=== PATIENT | female | born 1980 | race Caucasian/White ===

== ENCOUNTER 2018-08-22 20:22 | Emergency (ER) | payer SELFPAY ==
[2018-08-22] MEDS ORDERED: Fentanyl 100 MCG/2 ML VIAL ONE (21:08)
--- NOTE | 2018-08-22 21:58 | ULT ---
ULTRASOUND PELVIC ULTRASOUND TRANSVAGINAL DOPPLER DUPLEX: 08/22/18 at 9:16 p.m. HISTORY: 37-year-old female with severe pelvic pain. Rule out ovarian torsion. TECHNIQUE: Transabdominal transducer used to evaluate intrapelvic contents using the urinary bladder as an acous tic window. Endovaginal transducer used to visualize intrapelvic contents in greater detail. Color fl ow Doppler and Pulsed Doppler spectral waveform analysis of ovaries. FINDINGS: The uterus measures approximately 9 x 5 x 5.5 cm. Endometrial stripe is 1.4 cm (14 mm). Right ovary is approximately 3 x 2 x 1 cm. Left ovary is approximately 2.5 x 1.5 x 1 cm. No ovarian cyst is visualized. Symmetrical degree of blood flow is demonstrated in bilateral ovarian parenchyma. There is a small to moderate amount of free fluid in the right adnexa. There is also material of inte rmediate echogenicity and increased blood flow in the right adnexa around the right ovary. Some of th is represents bowel loops. Some of it could represent hyperemic, inflammatory tissue, although this i s certain. There is also a small amount of free fluid in the cul-de-sac. The patient was most tender over the right adnexa during scanning with the transvaginal transducer. IMPRESSION: 1. Bilateral ovaries are of normal size, and have symmetrical blood flow demonstrated by doppler . 2. Small to moderate amount of free fluid in the right adnexa and cul-de-sac. 3. Hyperemic tissue in the right adnexa. Some of this represents bowel loops. There is a possibi lity of pelvic inflammatory disease, although that is uncertain. Recommend clinical correlation. JENNY Rice POS: LANI
[2018-08-24 14:04] LABS: Chlamydia by PCR Not Detected (NotDetected); GC by PCR Not Detected (NotDetected)
== END 2018-08-22 22:55 | disposition home or self-care (01) ==
LOC: ERS 20:22
DX: R10.31 Right lower quadrant pain (principal); R10.32 Left lower quadrant pain; F31.9 Bipolar disorder, unspecified; F41.9 Anxiety disorder, unspecified; F17.210 Nicotine dependence, cigarettes, uncomplicated
CPT/HCPCS: 76856; 87480; 87491; 87510; 87591; 87660; 96361; 96374; J3010

== ENCOUNTER 2019-08-02 03:30 | Emergency (ER) | payer SELFPAY ==
[2019-08-02] MEDS ORDERED: Morphine 4 MG/ML VIAL ONE (03:54)
[2019-08-02] MEDS ORDERED: Ondansetron PF 4 MG/2 ML Vial ONE (03:54)
[2019-08-02 03:57] LABS: #Basophils 0.1 thou/uL (0.0-0.2); #Eosinphils 0.2 thou/uL (0.0-0.7); #Lymphocytes 2.8 thou/uL (1.20-3.40); #Monocytes 0.6 thou/uL (0.11-0.59); #Neutrophils 5.5 thou/uL (1.40-6.50); %Basophils 0.7 % (0.0-1.0); %Eosinophils 2.2 % (0.0-10.0); %Lymphocytes 30.5 % (21.0-51.0); %Monocytes 6.4 % (0.0-10.0); %Neutrophils 60.1 % (42.0-75.0); Hemoglobin 13.9 g/dL (12.0-16.0); Mean Corpuscular HGB CONC 33.5 g/dL (32.0-36.0); Mean Corpuscular Hemoglobin 30.6 pg (27.0-31.0); Mean Corpuscular Volume 91.4 fL (78.0-98.0); Mean Platelet Volume 8.4 fL (7.4-10.4); Platelet Count 232 thou/uL (130-400); Red Blood Cell (RBC) Count 4.55 mill/uL (4.20-5.40); White Blood Cell (WBC) Count 9.2 thou/uL (4.8-10.8)
[2019-08-02 04:13] LABS: Lactic Acid 0.8 mmol/L (0.5-2.2)
[2019-08-02 04:26] LABS: ALT (SGPT) 24 U/L (8-55); AST (SGOT) 17 U/L (5-34); Albumin 4.4 g/dL (3.5-5.0); Alkaline Phosphatase 72 U/L (40-110); Anion Gap 12 mmol/L (10-20); BUN (Urea Nitrogen) 12 mg/dL (7.0-18.7); Bilirubin, Total 0.2 mg/dL (0.2-1.2); Calc. Creatinine Clearance 0 mL/min (70-130); Calcium 9.7 mg/dL (7.8-10.44); Carbon Dioxide 28 mmol/L (22-29); Chloride 104 mmol/L (98-107); Estimated GFR-MDRD 81; Glucose 93 mg/dL (70-105); Lipase 20 U/L (8-78); Potassium 3.7 mmol/L (3.5-5.1); Protein, Total 7.4 g/dL (6.0-8.3); Sodium 140 mmol/L (136-145)
[2019-08-02 04:36] LABS: Pregnancy Test - Urine (BHCG) Negative (Negative); Pregu Control Background? CLEAR/WHITE (CLR/WHITE); Pregu Control Bar Appear? YES (CONTROL BAR); Specific Gravity 1.019 (1.002-1.036)
[2019-08-02 04:37] LABS: Bilirubin Negative (Negative); Blood, Urine Negative (Negative); Calcium Oxalate Crystals 3+ HPF (None Seen); Clarity Clear (Clear); Glucose, Urine (Dipstick) Normal (Negative); Leukocyte 25 Leu/uL (Negative); Nitrite Negative (Negative); Protein, Urine (Dipstick) Negative (Neg-Trace); RBC/HPF 0-3 HPF (0-3); Urobilinogen Normal mg/dL (Less than 2); WBC/HPF 0-3 HPF (0-3)
[2019-08-02 04:39] LABS: Bacteria/HPF 1+ HPF (None Seen)
--- NOTE | 2019-08-02 08:45 | CT ---
PRELIMINARY REPORT/[facility]/EMERGENCY AFTER HOURS PROCEDURE: PROCEDURE INFORMATION: Exam: CT Abdomen And Pelvis With Contrast Exam date and time: 08/02/2019 4:34 AM Clinical history: 38 years old, female; Abdominal pain; Patient HX: PT C/O sharp stabbing pain in lef t lower quadrant abd; Additional info: Acute onset llq abd pain 1 hour prior to arrival; Tubal ligati on - doubt ectopic; No avarian cysts - doubt torsion; B/m yesterday - doubt obstruction. Suspect dive rticulitis. No HX of kidney stone and pain is constant - doubt lithiasis TECHNIQUE: Imaging protocol: Computed tomography of the abdomen and pelvis with intravenous contrast. COMPARISON: No relevant prior studies available. FINDINGS: Lungs: The lung bases are clear. Liver: The liver appears somewhat enlarged, with right lobe length of about 22 cm. No definite/signif icant focal hepatic abnormality. Gallbladder and bile ducts: Prior cholecystectomy. Borderline/mild extra hepatic biliary tree prominence, with common duct measuring up to about 10-11 m m. Mild intrahepatic biliary prominence. No visible common duct stone by CT. Significance uncertain. Correlation with laboratory/bilirubin levels may be helpful to determine if t here is any significant biliary obstruction. Pancreas: Unremarkable. Spleen: Unremarkable. Adrenals: Unremarkable. Kidneys and ureters: No significant hydronephrosis/hydroureter involving either kidney. No visible ureteral calculus. No perinephric fluid. Normal appearance of the kidneys on CT does not entirely exclude the diagnosis of acute pyelonephriti s. Please correlate with clinical and laboratory evaluation. Stomach and bowel: Several small bowel loops in the left abdomen are fluid filled and borderline prom inent in size. The overall appearance is not strongly suggestive of significant small bowel obstructi on at this time. This appearance could be secondary to some form of gastroenteritis. Please correlate clinically. If there is clinical suspicion for small bowel obstruction, follow-up may be helpful to exclude progr ession. There are no CT findings to strongly suggest diverticulitis. Appendix: The appendix is visualized and appears normal. Intraperitoneal space: No free intraperitoneal air, or ascites. Vasculature: No evidence for abdominal aortic aneurysm. Lymph nodes: No retroperitoneal adenopathy. Bladder: Possibly some mild diffuse urinary bladder wall thickening. While nonspecific, this could in dicate evidence for cystitis. Please correlate clinically. Reproductive: No definite abnormal ovarian/adnexal cyst or mass by CT. Bones/joints: Moderate disc space narrowing at L5-S1. Soft tissues: No significant acute finding. IMPRESSION: 1. Several small bowel loops in the left abdomen are fluid filled and borderline prominent in size. T his appearance could be secondary to some form of gastroenteritis. See above discussion. 2. No diverticulitis. 3. No free intraperitoneal air. 4. Possible mild urinary bladder wall thickening, see above. 5. No significant hydronephrosis or visible ureteral calculus. 6. No perinephric fluid. See above discussion. 7. Prior cholecystectomy. Borderline/mild biliary tree prominence, see above discussion. 8. Other findings discussed above. Thank you for allowing us to participate in the care of your patient. Dictated and Authenticated by: Ricky Rossi MD 08/02/2019 5:18 AM Central Time ([place] & [place]) FINAL REPORT EMERGENT AFTER HOURS CT OF THE ABDOMEN AND PELVIS WITH CONTRAST: FINDINGS/IMPRESSION: I agree with the findings and impression given in the preliminary report per [facility] physician. This i s basically a normal exam. The small bowel loops are likely normal. POS: CET
[2019-08-02] MEDS ORDERED: Iopamidol 370 76% 100 ML VIAL ONE (16:01)
== END 2019-08-02 05:40 | disposition home or self-care (01) ==
LOC: ERS 03:30
DX: K52.9 Noninfective gastroenteritis and colitis, unspecified (principal); F41.9 Anxiety disorder, unspecified; F31.9 Bipolar disorder, unspecified; F17.210 Nicotine dependence, cigarettes, uncomplicated
CPT/HCPCS: 74177; 80053; 81003; 81015; 81025; 83605; 83690; 85025; 96361; 96374; 96375; J2270; J2405; Q9967

== ENCOUNTER 2022-01-25 17:38 | Emergency (ER) | payer SELFPAY | END 2022-01-25 18:28 | disposition home or self-care (01) | LOC: ERS 17:38 | DX: S00.81XA Abrasion of other part of head, initial encounter (principal); L08.9 Local infection of the skin and subcutaneous tissue, unspecified; F17.210 Nicotine dependence, cigarettes, uncomplicated; X58.XXXA Exposure to other specified factors, initial encounter | CPT/HCPCS: 99283 ==

== ENCOUNTER 2023-09-20 10:44 | Emergency (ER) | payer OTHER ==
[2023-09-20] MEDS ORDERED: HYDROcodone/Acetaminophen 5/325 mg Tablet ONE (11:48)
[2023-09-20] MEDS ORDERED: Cyclobenzaprine 10 MG TAB ONE (11:48)
[2023-09-20] MEDS ORDERED: predniSONE 20 MG TAB ONE (11:48)
== END 2023-09-20 12:49 | disposition home or self-care (01) ==
LOC: ERS 10:44
DX: M54.50 Low back pain, unspecified (principal); F17.210 Nicotine dependence, cigarettes, uncomplicated; I10 Essential (primary) hypertension
CPT/HCPCS: 72100; J7512